=== PATIENT | male | born 1990 | race American Indian/Alaskan Native ===

== ENCOUNTER → 2016-12-06 | Outpatient (CLI) | payer OTHER ==
--- NOTE | 2016-12-06 22:38 | DIAGNOSTIC IMAGING REPORT ---
MRI right knee RIGHT LOWER EXT JOINT WITHOUT CLINICAL HISTORY: RIGHT KNEE PAIN Right TECHNIQUE: MRI multi axial acquisition COMPARISON STUDY: None FINDINGS: Signal characteristics of the bony structures are normal. All major ligamentous and tendinous structures are intact. There is no significant joint effusion. There is no popliteal cyst. IMPRESSION: Normal study Electronically signed by: Vitor Barbosa M.D. 12/06/2016 10:36 PM Dictated Date/Time: 12/06/2016 10:30 PM
== END | disposition home or self-care (01) ==
LOC: C.MRI 20:57
PROVIDERS: ATTEND Family Medicine
DX: M25.561 Pain in right knee (principal)